=== PATIENT | male | born 1990 | race Caucasian/White ===

== ENCOUNTER 2020-07-28 16:39 | Outpatient (REF) | payer MEDICAID, SELFPAY ==
[2020-07-31 15:41] LABS: Chlamydia Result Negative (Negative); GC Result Negative (Negative)
[2020-08-03 11:26] LABS: C.trach, Misc, Amplified RNA Negative (Negative); N.gonorr, Misc, Amplified RNA Negative (Negative); SOURCE: THROAT
== END 2020-07-28 16:59 ==
LOC: NCHCN 16:39
PROVIDERS: Visit Provider Family Medicine
DX: Z11.3 Encounter for screening for infections with a predominantly sexual mode of transmission (principal)
CPT/HCPCS: 87491; 87591

== ENCOUNTER 2022-10-12 10:31 | Emergency (ER) | payer OTHER, SELFPAY ==
[2022-10-12 10:43] VITALS: BP 125/50; PULSE 68; RESP 18; TEMP 37.1; O2SAT 98
--- NOTE | 2022-10-12 11:20 | DI.RAD_ITS ---
Exam(s) XR SHOULDER LT COMPLETE 2+V EXAM: XR SHOULDER LT COMPLETE 2+V CLINICAL HISTORY: fall/pain. TECHNIQUE: 2D digital imaging was performed. Three views. COMPARISON: No exams were available for comparison FINDINGS: BONES: No acute fracture is present. No bony destructive lesion is seen. JOINTS: No dislocation present. SOFT TISSUE: Normal. IMPRESSION: Unremarkable radiographs of the left shoulder. DATA REPOSITORY: RADIATION DOSE DELIVERED:
--- NOTE | 2022-10-12 11:34 | W.ED.GENAD ---
Discharge Plan Disposition Patient Disposition: Home Condition: Stable Discharge Details Clinical Impression: Injury of left shoulder Primary Care Provider: Brandan Jimenez ED Provider: Casey Saleem Discharge Instructions Instructions: Shoulder Pain (ED) Additional Instructions: X-ray does not reveal any obvious emergent process. Clinically you are most tender over your AC joint. Wear sling as needed, advance activity as tolerated. Be sure to do passive range of motion at least 4 times daily to avoid a frozen shoulder. Rest, elevate leg and/or warm compresses every 2 hours for 20 minutes. [id number] Tylenol and/or Motrin as directed for discomfort. Please watch for new or worsening symptoms and return to the ER for any concerns. Lastly, I would like you to contact our orthopedic group on Friday to discuss your ER visit and set up outpatient reevaluation, as we discussed further imaging and/or physical therapy may be required depending on how you respond to conservative measures. Referrals: Ronni Garza MD [ [facility] STAFF PHYSICIAN] - Discharge Data Discharge Date/Time-TO BE ENTERED AT DEPARTURE: 10/12/22 13:11 Medical Decision Making 32-year-old gentleman, [id number], reports a left shoulder injury status post slipping 5 days ago at work and attempting to catch himself in a jarring mechanism. Reports [id number] medication not helping much with discomfort. Clinically he appears well, nontoxic, no obvious deformity, neuro, vascular, tendon intact. Diffuse discomfort but worse over the AC joint. Suspect AC joint injury. X-ray of left shoulder unremarkable. Discussed x-ray findings with patient. Plan to provide sling, we discussed the importance of passive range of motion to avoid a frozen shoulder. We discussed conservative measures such as Tylenol, Motrin, cool and/or warm compresses. We also discussed the importance of outpatient follow-up with orthopedics. Standard discharge and return precautions were provided. Patient understands, is agreeable to this plan, and has no additional questions or concerns upon discharge. This documentation was generated using [employer] system, please disregard any oddities of phrase or misspellings. Medical Records Medical records reviewed: Yes I reviewed the patient's medical records. Imaging Data Radiologic Study: Attestation: I personally reviewed and interpreted this imaging study as follows: Imaging: X-Ray Radiologist's impression: PROCEDURE INFORMATION: Exam: XR Left Shoulder Exam date and time: 10/12/2022 11:11 AM Age: 32 years old Clinical indication: Pain; Shoulder; Left; Patient HX: Fall TECHNIQUE: Imaging protocol: Radiologic exam of the Left shoulder. Views: 2 or more views. COMPARISON: No relevant prior studies available. FINDINGS: Bones/joints: There is no evidence of acute fracture.There is no evidence of malalignment or dislocation. Soft tissues: Normal. IMPRESSION: There is no evidence of acute fracture.There is no evidence of malalignment or dislocation Sign Out No HPI General Mode of arrival: ambulatory. Date/Time Provider Initiated Documentation: 10/12/22 10:48. Limitations to Documentation: no limitations. Information obtained by: patient. History of Present Illness 32 year old M presents to the emergency department with the chief complaint of L shoulder injury/pain, described as moderate, with intensity rated at 5. Quality is described as aching, and is localized to the left and upper extremity. Patient extremity (down l arm). Patient started experiencing this day(s) (5) and it has been constant. Immobilization improves symptom(s), Movement worsens symptoms . Patient notes no other symptoms.. Patient did receive the following treatments prior to arrival, none Related Data Allergies Allergy/AdvReac Type Severity Reaction Status Date / Time phenytoin [From Dilantin] AdvReac Severe Other (See Unverified 10/12/22 10:47 Comment) General Stated Complaint: Orthopedic JOSEY: 4 Review of Systems Constitutional Constitutional: Denies fever(s) and Denies weakness Cardiovascular Cardiovascular: Denies chest pain Musculoskeletal Musculoskeletal: Reports arthralgias, Denies numbness, Reports stiffness and Reports tingling (At times into certain positions) Integumentary/Breasts Skin/Breast: Denies rash Neurologic Neurologic: Denies numbness, Reports tingling (At times into certain positions) and Denies weakness PFSH All Active Problems Injury of left shoulder (Acute) Social History Smoking/Tobacco Use Status: Former Tobacco Use Smoking risk assessment performed?: Yes Alcohol Intake: current Alcohol Intake frequency: a few times a month Drug use: Daily Substance use type: marijuana Do you feel safe at home: Yes Do you feel safe in your relationship?: Yes Exam Const General: cooperative, healthy appearing, comfortable and no acute distress Orientation: alert and awake [facility] Head: normal to inspection, normocephalic and atraumatic Eyes General: appearance normal, both eyes and all related structures Conjunctivae: conjunctivae normal Neck Neck: normal visual inspection, full ROM, no meningeal signs, trachea midline, supple and nontender Chest Chest: normal inspection of the chest and tenderness clavicle on the left distal clavicular Resp Effort & Inspection: normal respiratory effort and able to speak in complete sentences Auscultation: clear to auscultation bilaterally Cardio Rate: regular rate Rhythm: regular rhythm Skin General skin exam: no rashes or lesions noted Neuro General: patient alert, patient awake, moves all extremities and no focal motor deficits Cognition: normal cognition Speech: speech normal Gait: normal gait Motor: muscle tone normal throughout Sensory Exam: no sensory deficits noted Extrem General: full ROM and capillary refill normal Other: Left shoulder with diffuse superior and anterior discomfort, worse over the AC joint. No deformity. Patient does have full range of motion but any movement greater than 90 degrees does cause the patient to have increased discomfort. 5 out of 5 strength. Neuro, vascular, tendon intact. Normal radial pulse. Psych Appearance: grossly normal Mental Status: mental status grossly normal Course Vital Signs Vital signs: Vital Signs Temperature 37.1 C 10/12/22 10:43 Pulse 68 10/12/22 10:43 Respiratory Rate 18 10/12/22 10:43 Blood Pressure 125/50 L 10/12/22 10:43 Pulse Oximetry 98 10/12/22 10:43 Temperature 37.1 C 10/12/22 10:43 Temperature Source Temporal Artery Scan 10/12/22 10:43 Pulse 68 10/12/22 10:43 Respiratory Rate 18 10/12/22 10:43 Respiratory Effort Non-Labored 10/12/22 10:48 Blood Pressure 125/50 L 10/12/22 10:43 Blood Pressure Position Supine 10/12/22 10:43 Pulse Oximetry 98 10/12/22 10:43 Oxygen Delivery Method Room Air 10/12/22 10:43 Oxygen Flow Rate 0 10/12/22 10:43 PAWSS Have you Been Recently Intoxicated or Drunk Within the Last 30 days?: No Have you Ever Experienced Previous Episodes of Alcohol Withdrawal?: No Have you ever Experienced Withdrawal Seizures?: No Have you ever Experienced Delirium Tremens(DT)s?: No Have you ever undergone Alcohol Rehabilitation Treatment (i.e, inpt ot outpatient treatment programs)?: No Have you ever Experienced Blackouts?: No Have you ever Combined Alcohol with other Downers within the last 90 days?: No Have you ever Combined Alcohol with any other Substance of Abuse during the last 90 days?: No Positive Blood Alcohol level on Presentation? [PCS.BAL]: No Evidence of Increased Autonomic Activity (i.e. HR>120, tremor, sweating, agitation, nausea)?: No Result: 0
== END 2022-10-12 13:11 | disposition home or self-care (01) ==
PROVIDERS: Emergency Provider Physician Assistant
DX: S49.92XA Unspecified injury of left shoulder and upper arm, initial encounter (principal); Z87.891 Personal history of nicotine dependence; Y99.0 Civilian activity done for income or pay; W18.40XA Slipping, tripping and stumbling without falling, unspecified, initial encounter
CPT/HCPCS: 99283; 73030; 99282